=== PATIENT | female | born 1950 ===

== ENCOUNTER 2017-05-06 09:53 | Emergency (ER) | payer OTHER ==
[2017-05-06 10:12] VITALS: BP 120/74; PULSE 76; RESP 18; TEMP 97.9; O2SAT 97
--- NOTE | 2017-05-06 10:52 | C.PDOC ---
History Of Present Illness VIA TRANS NEW ONSET R EYE REDNESS SINCE 5 DAYS. PS AWOKE W REDNESS BUT TODAY IMPROVED COMPARED TO PRIOR. NO PAIN, VISOIN CHANGE, DC, SWELLING. DENIES TRAUMA. OTHERWISE ASYMPT EXAM NAD HEENT +R MEDIAL SUBCONJ HEMORRHAGE; NO HYPHEMA; EOMI; NO VISION REMAINDER NEG Time Seen by Provider: 05/06/17 10:44 Chief Complaint (Nursing): Eye Problem History Per: Patient History/Exam Limitations: no limitations Onset/Duration Of Symptoms: Days Current Symptoms Are (Timing): Still Present Severity: Moderate Past Medical History Reviewed: Historical Data, Nursing Documentation, Vital Signs Vital Signs: Last Vital Signs Temp 97.9 F 05/06/17 10:05 Pulse 76 05/06/17 10:05 Resp 18 05/06/17 10:05 BP 120/74 05/06/17 10:05 Pulse Ox 97 05/06/17 10:52 - Medical History PMH: HTN Surgical History: Family History: States: No Known Family Hx - Social History Hx Alcohol Use: No Hx Substance Use: No - Immunization History Hx Tetanus Toxoid Vaccination: No Hx Influenza Vaccination: No Review Of Systems Eyes: Positive for: Redness (right eye redness). Negative for: Pain, Vision Change Physical Exam - Physical Exam Appears: No Acute Distress Skin: Normal Color, Warm Head: Atraumatic, Normacephalic Eye(s): right: EOMI, Other (medial subconjunctival hemorrhage, no hyphema, no vision), left: Normal Inspection Neurological/Psych: Oriented x3, Normal Speech ED Course And Treatment O2 Sat by Pulse Oximetry: 97 (RA) Pulse Ox Interpretation: Normal Disposition Counseled Patient/Family Regarding: Diagnosis, Need For Followup - Disposition Referrals: Newton Flores MD [Staff Provider] - Disposition: HOME/ ROUTINE Disposition Time: 10:52 Condition: GOOD Instructions: Subconjunctival Hemorrhage Forms: [facility] (Latvian) Print Language: BENGALI - Clinical Impression Clinical Impression: Subconjunctival hemorrhage of right eye - Scribe Statement The provider has reviewed the documentation as recorded by the Scribe Estefani Frank Provider Attestation: All medical record entries made by the Scribe were at my direction and personally dictated by me. I have reviewed the chart and agree that the record accurately reflects my personal performance of the history, physical exam, medical decision making, and the department course for this patient. I have also personally directed, reviewed, and agree with the discharge instructions and disposition.
== END 2017-05-06 11:07 | disposition home or self-care (01) ==
LOC: C.ER 09:53
DX: H11.31 Conjunctival hemorrhage, right eye (principal); I10 Essential (primary) hypertension

== ENCOUNTER 2017-06-10 18:40 | Emergency (ER) | payer OTHER ==
[2017-06-10 18:46] VITALS: BP 115/73; PULSE 77; RESP 18; TEMP 98.9; O2SAT 97
--- NOTE | 2017-06-10 19:22 | C.PDOC ---
History Of Present Illness 48 y/o male presents to the ED requesting med refill for Cozaar 50 mg. Patient lives in [place] and is here visiting family, ran out of medication. He offers no physical complaints. Time Seen by Provider: 06/10/17 19:01 Chief Complaint (Nursing): Med Refill History Per: Patient History/Exam Limitations: no limitations Past Medical History Reviewed: Historical Data, Nursing Documentation, Vital Signs Vital Signs: Last Vital Signs Temp 98.9 F 06/10/17 18:42 Pulse 77 06/10/17 18:42 Resp 18 06/10/17 18:42 BP 115/73 06/10/17 18:42 Pulse Ox 97 06/10/17 19:24 - Medical History PMH: HTN Surgical History: Family History: States: No Known Family Hx - Social History Hx Alcohol Use: No Hx Substance Use: No - Immunization History Hx Tetanus Toxoid Vaccination: No Hx Influenza Vaccination: No Review Of Systems Except As Marked, All Systems Reviewed And Found Negative. Cardiovascular: Negative for: Chest Pain Respiratory: Negative for: Shortness of Breath Neurological: Negative for: Headache Physical Exam - Physical Exam Appears: Well, Non-toxic, No Acute Distress Skin: Normal Color Head: Atraumatic, Normacephalic Eye(s): bilateral: Normal Inspection Chest: Symmetrical Respiratory: No Accessory Muscle Use, No Other (respiratory distress) Neurological/Psych: Oriented x3, Normal Speech ED Course And Treatment O2 Sat by Pulse Oximetry: 97 (RA) Pulse Ox Interpretation: Normal Progress Note: Provided refill as requested. Patient is AAOx3, no acute distress , no complaints at this time. Stable for d/c home. Advised patient to follow up with his primary doctor when returning from trip. Disposition Counseled Patient/Family Regarding: Need For Followup, Rx Given - Disposition Disposition: HOME/ ROUTINE Disposition Time: 19:21 Condition: STABLE Additional Instructions: Follow up with PMD within 1-2 days. Return to ED if feel worse. Prescriptions: Losartan [Cozaar] 1 tab PO DAILY #30 tab Instructions: Losartan Forms: [facility] (Arabic) Print Language: HUNGARIAN - Clinical Impression Clinical Impression: Medication refill - PA / PHYSICAL THERAPY MANAGER / Resident Statement MD/DO has reviewed & agrees with the documentation as recorded. - Scribe Statement The provider has reviewed the documentation as recorded by the Scribe (Genesis Mccarty) All medical record entries made by the Scribe were at my direction and personally dictated by me. I have reviewed the chart and agree that the record accurately reflects my personal performance of the history, physical exam, medical decision making, and the department course for this patient. I have also personally directed, reviewed, and agree with the discharge instructions and disposition.
== END 2017-06-10 19:29 | disposition home or self-care (01) ==
LOC: C.ER 18:40
DX: Z76.0 Encounter for issue of repeat prescription (principal); I10 Essential (primary) hypertension